=== PATIENT | female | born 1935 | race Caucasian/White ===

== ENCOUNTER 2017-04-01 14:16 | Inpatient (IN) | payer MEDICARE, BC ==
[~2017-04-01] VITALS: Ht 165.1 cm; Wt 89.1 kg
[2017-04-01] VITALS (33 sets, daily range): BP systolic 80–112; BP diastolic 45–89
--- NOTE | ~2017-04-01 | CN ---
PATIENT NAME:WOOD WHITMORE MEDICAL RECORD: [id number] : 39 LOCATION:[id number] ADMIT DATE: 04/01/17 ACCOUNT: [id number] CONSULTING PHYSICIAN: HAIDER SANDOVAL MD REFERRING PHYSICIAN: GEORGINA STYLES MD DATE OF CONSULTATION: 04/02/2017 HISTORY OF PRESENT ILLNESS: This 81-year-old female with no known cardiovascular history, actually had negative angiography approximately [address] Shen in [place], began feeling generalized malaise and fatigue, starting out Sunday, became confused, profoundly hypotensive, presented to her local ER, found to be acidotic as well as elevated cardiac enzymes, was referred here for higher level of care. PAST MEDICAL HISTORY: Includes history of hypertension. ALLERGIES: PHENOBARBITAL, ZYRTEC, and MORPHINE. SOCIAL HISTORY: Nonsmoker and nondrinker. Easily takes care of her ADLs. REVIEW OF SYSTEMS: The patient reports easy bruising but reports no swollen glands. The patient reports no fever, no night sweats, no significant weight gain, no significant weight loss. No significant exercise tolerance. The patient reports no dry eyes, no irritation, no vision change. Patient reports no difficulty hearing and no ear pain. Patient reports no frequent nose bleeds or nose and sinus problems. Patient reports on arm pain on exertion. No shortness of breath while lying down. No history of heart murmur. Patient reports no cough, no wheezing or coughing up blood. Patient reports no abdominal pain, no vomiting. Normal appetite. No diarrhea and not vomiting blood. No nausea and no constipation. Patient reports no incontinence. No difficulty urinating. No hematuria. No increased frequency. Patient reports no muscle aches. No weakness, no arthralgias, no back pain. No swelling of the extremities. Patient reports no abnormal mole, no jaundice, no rashes. Reports no loss of consciousness. No weakness and no numbness. No seizures, dizziness, or headaches. The patient reports no depression, no sleep disturbance, feeling safe in a relationship and no alcohol abuse. Patient reports on fatigue. Reports no runny nose or sinus pressure. No itching, no hives, and no frequent sneezing. PHYSICAL EXAMINATION: GENERAL: Pleasant female in no acute distress, does not appear toxic. VITAL SIGNS: Blood pressure 116/64, pulse 97 and regular. HEENT: Normocephalic, atraumatic. NECK: No JVD or bruit. HEART: Regular. LUNGS: Actually good air excursion. ABDOMEN: Soft, nontender. EXTREMITIES: Pulses 2+. There is no edema. DIAGNOSTIC DATA: ECG shows diffuse T-wave changes consistent with global event. IMPRESSION: Suspect type 2 SC, enzyme leak secondary to hypotension, sepsis, etc. We will check an echocardiographic study. Given negative angiography previously, I would not perform any invasive workup currently. CONSULT REPORT [id number] WOOD WHITMORE TRANSINT:[id number] Voice Confirmation ID: [id number] DOCUMENT ID: [id number] HAIDER SANDOVAL MD at 1337 CC: [id number] DICTATION DATE: 04/02/1751 WATER VESSEL CAPTAIN: 04/02/17 1205 ADM IN [facility] [address] [place] [address]
--- NOTE | ~2017-04-01 | EC ---
PATIENT:WOOD WHITMORE DATE OF SERVICE: 04/01/17 SEX: F MEDICAL RECORD: [id number] DATE OF : 39 LOCATION:[facility] AGE OF PATIENT: 81 ADMISSION DATE: 04/01/17 REFERRING PHYSICIAN: INTERPRETING PHYSICIAN: RACHEL RAPP MD ECHOCARDIOGRAM REPORT ECHO CHARGES 4 ECHO COMPLETE CLINICAL DIAGNOSIS: CHF ECHOCARDIOGRAPHIC MEASUREMENTS (adult normal given) AC root (d.<3.7cm) 2.7 cm LV Septum d (<1.2 cm> 1.0 cm Valve Excursion 1.5 cm LV Septum (systole) 1.2 cm Left Atria (s.<4.0cm> 3.2 cm LVPW d(<1.2cm) 1.0 cm RV (d.<2.3cm) 2.1 cm LVPW (sytole) 1.5 cm LV diastole(<5.6CM) 5.0 cm MV E-F(>70mm/sec) cm LV systole 3.5 cm LVOT Diameter 1.7 cm MV exc.(>10mm) cm Est.ejection fraction (50-75%) % Pericardial Effusion N DOPPLER: LVIT cm/sec A 59.0 cm/sec E 115 cm/sec LA cm/sec RVSP 42.0 mmHg LVOT 69.0 cm/sec AOP1/2T m/s Asc. Ao 145 cm/sec RVOT 58.0 cm/sec RA cm/sec PA 97.0 cm/sec AV Gradient Peak 8.4 mmHg AV Mean 4.3 mmHg AV Area 1.0 cm MV Gradient Peak 5.5 mmHg MV Mean 2.2 mmHg MV Area cm COMMENTS: Equal Opportunity Officer: Carisa VALVERDEOE Accounts Payable Manager: Andrea Jaimes TAPE# PACS DATE OF SERVICE: 04/02/2017 PROCEDURE: Echocardiogram FINDINGS: 1. Left ventricular chamber size is dilated. Left ventricular systolic function is markedly reduced, overall ejection fraction 20% to 25%. There is global hypokinesis throughout all segments with no discrete wall motion abnormalities present. 2. Left atrium, right atrium and right ventricular chamber sizes are within ECHOCARDIOGRAM REPORT [id number] WOOD WHITMORE normal limits. Left atrium measures 3.2 cm. 3. Valvular structures have normal structure and motion. 4. Doppler interrogation reveals mild mitral regurgitation, mild tricuspid regurgitation, no other valvular insufficiency or stenosis. Pulmonary systolic pressure is estimated 42 mmHg. 5. No evidence of pericardial effusion or left ventricular thrombus. TRANSINT:[id number] Voice Confirmation ID: [id number] DOCUMENT ID: [id number] RACHEL RAPP MD at 1323 CC: [id number] DICTATION DATE: 04/04/17 1019 EQUAL OPPORTUNITY REPRESENTATIVE: 04/04/17 1252 ADM IN [facility] [address] [place] [id number]
[2017-04-01 18:06] LABS: HEMATOCRIT 37.6 % (36.0-48.0); HEMOGLOBIN 12.2 g/dL (12-16); MCH 31.4 pg (26.0-34.0); MCHC 32.4 g/dL (31.0-37.0); MCV 96.9 fL (80.0-100.0); MEAN PLATELET VOLUME 12.6 fL (7.4-10.4); PLATELET COUNT 163 10x3/uL (130-400); RBC 3.88 10x6/uL (4.00-5.40); RDW 14.1 % (11.5-14.5); WBC 25.2 10x3/uL (4.8-10.8)
[2017-04-01 18:21] LABS: ANION GAP 17.4 mmol/L (8-16); BILIRUBIN - TOTAL 0.2 mg/dL (0.2-1.3); CALCIUM 8.1 mg/dL (8.5-10.1); CARBON DIOXIDE 20.3 mmol/L (21.0-32.0); CREATININE - SERUM 1.7 mg/dL (0.6-1.3); POTASSIUM - SERUM 3.7 mmol/L (3.5-5.1); PROTEIN - SERUM 6.1 g/dL (6.4-8.2)
[2017-04-01 18:30] LABS: CKMB 4.9 U/L (0.0-3.6); CREATINE KINASE 62 UL (21-215)
[2017-04-01 18:33] LABS: TROPONIN-I 1.743 ng/mL (0.000-0.060)
[2017-04-01 18:36] LABS: BASOPHILS 1 % (0-2); LYMPHOCYTES 15 % (15-50); MONOCYTES 5 % (2-11); NEUTROPHILS 72 % (40-80); PLATELET ESTIMATE NORMAL
[2017-04-01 20:38] LABS: APPEARANCE CLEAR (CLEAR); BILIRUBIN NEGATIVE (NEGATIVE); COLOR YELLOW (YELLOW); GLUCOSE NEGATIVE (NEGATIVE); KETONE NEGATIVE (NEGATIVE); NITRITE NEGATIVE (NEGATIVE); PROTEIN NEGATIVE (NEGATIVE); SPECIFIC GRAVITY 1.015 (1.005-1.020); UROBILINOGEN NORMAL (NORMAL)
[2017-04-01 23:45] LABS: CKMB 5.7 U/L (0.0-3.6); CREATINE KINASE 68 UL (21-215)
[2017-04-02] VITALS (49 sets, daily range): BP systolic 90–134; BP diastolic 44–77; BMI 20.9
[2017-04-02 06:37] LABS: BASOPHILS 0.1 % (0-2); EOSINOPHILS 0 % (0-7); HEMATOCRIT 35.9 % (36.0-48.0); HEMOGLOBIN 11.6 g/dL (12-16); IMMATURE GRANULOCYTES 0.3 % (0-5); LYMPHOCYTES 13.4 % (15-50); MCH 31.2 pg (26.0-34.0); MCHC 32.3 g/dL (31.0-37.0); MCV 96.5 fL (80.0-100.0); MEAN PLATELET VOLUME 12.5 fL (7.4-10.4); NEUTROPHILS 79.2 % (40-80); PLATELET COUNT 138 10x3/uL (130-400); RBC 3.72 10x6/uL (4.00-5.40); RDW 14.2 % (11.5-14.5)
[2017-04-02 07:01] LABS: ALBUMIN 2.7 g/dL (3.4-5.0); ANION GAP 17.8 mmol/L (8-16); BILIRUBIN - TOTAL 0.28 mg/dL (0.2-1.3); CALCIUM 8.2 mg/dL (8.5-10.1); CARBON DIOXIDE 17.8 mmol/L (21.0-32.0); CREATININE - SERUM 1.4 mg/dL (0.6-1.3); POTASSIUM - SERUM 3.6 mmol/L (3.5-5.1); PROTEIN - SERUM 5.5 g/dL (6.4-8.2)
[2017-04-02 07:10] LABS: WBC 16.7 10x3/uL (4.8-10.8)
[2017-04-02 07:33] LABS: CREATINE KINASE 76 UL (21-215); TROPONIN-I 1.968 ng/mL (0.000-0.060)
[2017-04-03] VITALS (24 sets, daily range): BP systolic 106–142; BP diastolic 62–97
[2017-04-03 03:50] LABS: BASOPHILS 0.1 % (0-2); EOSINOPHILS 0 % (0-7); HEMATOCRIT 33.4 % (36.0-48.0); HEMOGLOBIN 10.7 g/dL (12-16); IMMATURE GRANULOCYTES 0.3 % (0-5); LYMPHOCYTES 10.9 % (15-50); MCH 30.9 pg (26.0-34.0); MCV 96.5 fL (80.0-100.0); MEAN PLATELET VOLUME 12.5 fL (7.4-10.4); MONOCYTES 5.6 % (2-11); NEUTROPHILS 83.1 % (40-80); PLATELET COUNT 133 10x3/uL (130-400); RBC 3.46 10x6/uL (4.00-5.40); RDW 14.4 % (11.5-14.5); WBC 14.7 10x3/uL (4.8-10.8)
[2017-04-03 05:54] LABS: ANION GAP 15.9 mmol/L (8-16); CALCIUM 7.9 mg/dL (8.5-10.1); CARBON DIOXIDE 18.6 mmol/L (21.0-32.0); CREATININE - SERUM 1.1 mg/dL (0.6-1.3); POTASSIUM - SERUM 3.5 mmol/L (3.5-5.1)
[2017-04-03 06:00] LABS: TROPONIN-I 1.41 ng/mL (0.000-0.060)
[2017-04-03 07:23] LABS: MAGNESIUM - SERUM 1.6 mg/dL (1.8-2.4); PHOSPHOROUS 2.6 mg/dL (2.5-4.9)
[2017-04-03 21:41] LABS: MAGNESIUM - SERUM 1.2 mg/dL (1.8-2.4)
[2017-04-03 21:45] LABS: POTASSIUM - SERUM 2.5 mmol/L (3.5-5.1)
[2017-04-04] VITALS (25 sets, daily range): BP systolic 92–132; BP diastolic 48–72
[2017-04-04 04:05] LABS: BASOPHILS 0 % (0-2); EOSINOPHILS 0 % (0-7); HEMATOCRIT 30.2 % (36.0-48.0); IMMATURE GRANULOCYTES 0.4 % (0-5); LYMPHOCYTES 11.9 % (15-50); MCH 30.6 pg (26.0-34.0); MCHC 33.1 g/dL (31.0-37.0); MEAN PLATELET VOLUME 9.9 fL (7.4-10.4); MONOCYTES 5.4 % (2-11); NEUTROPHILS 82.3 % (40-80); RBC 3.27 10x6/uL (4.00-5.40); RDW 12.7 % (11.5-14.5)
[2017-04-04 04:10] LABS: MCV 92.4 fL (80.0-100.0); PLATELET COUNT 229 10x3/uL (130-400); WBC 5.4 10x3/uL (4.8-10.8)
[2017-04-04 04:23] LABS: CALCIUM 8.3 mg/dL (8.5-10.1); CREATININE - SERUM 0.9 mg/dL (0.6-1.3)
[2017-04-04 04:25] LABS: ANION GAP 11.7 mmol/L (8-16); CARBON DIOXIDE 27.2 mmol/L (21.0-32.0); POTASSIUM - SERUM 3.9 mmol/L (3.5-5.1)
[2017-04-05] VITALS (42 sets, daily range): BP systolic 71–132; BP diastolic 41–76
[2017-04-05 06:03] LABS: CALCIUM 8.4 mg/dL (8.5-10.1)
[2017-04-05 06:05] LABS: ANION GAP 19.4 mmol/L (8-16); CARBON DIOXIDE 16.9 mmol/L (21.0-32.0); CREATININE - SERUM 1.7 mg/dL (0.6-1.3); POTASSIUM - SERUM 5.3 mmol/L (3.5-5.1); TROPONIN-I 0.156 ng/mL (0.000-0.060)
[2017-04-05 06:41] LABS: HEMATOCRIT 37.2 % (36.0-48.0); HEMOGLOBIN 11.7 g/dL (12-16); MCH 30.3 pg (26.0-34.0); MCHC 31.5 g/dL (31.0-37.0); MCV 96.4 fL (80.0-100.0); MEAN PLATELET VOLUME 12.7 fL (7.4-10.4); PLATELET COUNT 171 10x3/uL (130-400); RBC 3.86 10x6/uL (4.00-5.40); RDW 14.2 % (11.5-14.5); WBC 21.6 10x3/uL (4.8-10.8)
[2017-04-05 08:20] LABS: LYMPHOCYTES 10 % (15-50); MONOCYTES 8 % (2-11); NEUTROPHILS 77 % (40-80); PLATELET ESTIMATE NORMAL; ROULEAUX OCC
[2017-04-06] VITALS (73 sets, daily range): BP systolic 86–114; BP diastolic 40–77
[2017-04-06 04:00] LABS: BASOPHILS 0.1 % (0-2); EOSINOPHILS 0 % (0-7); HEMATOCRIT 30.2 % (36.0-48.0); HEMOGLOBIN 9.7 g/dL (12-16); IMMATURE GRANULOCYTES 3.4 % (0-5); LYMPHOCYTES 11.4 % (15-50); MCHC 32.1 g/dL (31.0-37.0); MEAN PLATELET VOLUME 12.1 fL (7.4-10.4); MONOCYTES 9.9 % (2-11); NEUTROPHILS 75.2 % (40-80); RBC 3.23 10x6/uL (4.00-5.40); RDW 14.1 % (11.5-14.5)
[2017-04-06 04:04] LABS: MCV 93.5 fL (80.0-100.0); PLATELET COUNT 132 10x3/uL (130-400); WBC 13.7 10x3/uL (4.8-10.8)
[2017-04-06 04:07] LABS: KETONE - SERUM SMALL mg/dL (NEGATIVE)
[2017-04-06 04:25] LABS: ALBUMIN 2.1 g/dL (3.4-5.0); ALKALINE PHOSPHATASE 53 U/L (46-116); ALT (SGPT) 428 U/L (10-68); CALCIUM 7.6 mg/dL (8.5-10.1); CHLORIDE - SERUM 106 mmol/L (98-107); CREATINE KINASE 28 UL (21-215); GLUCOSE 101 mg/dL (74-106); MAGNESIUM - SERUM 2.4 mg/dL (1.8-2.4); PROTEIN - SERUM 4.8 g/dL (6.4-8.2); SODIUM 137 mmol/L (136-145)
[2017-04-06 04:36] LABS: CALC OSMOLALITY 280 mosm/kg (275-300); CREATININE - SERUM 2.4 mg/dL (0.6-1.3); UREA NITROGEN 32 mg/dL (7-18); eGFR NON AFRICAN AMERICAN 21 mL/min (90-120)
[2017-04-07] VITALS (97 sets, daily range): BP systolic 93–130; BP diastolic 38–63
[2017-04-07 03:31] LABS: BASOPHILS 0.1 % (0-2); EOSINOPHILS 0.3 % (0-7); HEMATOCRIT 27.6 % (36.0-48.0); HEMOGLOBIN 9.2 g/dL (12-16); IMMATURE GRANULOCYTES 2.3 % (0-5); LYMPHOCYTES 15.6 % (15-50); MCH 30.2 pg (26.0-34.0); MCHC 33.3 g/dL (31.0-37.0); MEAN PLATELET VOLUME 11.8 fL (7.4-10.4); MONOCYTES 8.3 % (2-11); NEUTROPHILS 73.4 % (40-80); PLATELET COUNT 117 10x3/uL (130-400); RBC 3.05 10x6/uL (4.00-5.40); RDW 14.3 % (11.5-14.5); WBC 11.5 10x3/uL (4.8-10.8)
[2017-04-07 03:37] LABS: MCV 90.5 fL (80.0-100.0)
[2017-04-07 03:44] LABS: ALBUMIN 1.9 g/dL (3.4-5.0); BILIRUBIN - TOTAL 0.41 mg/dL (0.2-1.3); CALCIUM 7.4 mg/dL (8.5-10.1); CARBON DIOXIDE 16.5 mmol/L (21.0-32.0); PROTEIN - SERUM 4.5 g/dL (6.4-8.2)
[2017-04-07 03:45] LABS: ANION GAP 19.8 mmol/L (8-16); POTASSIUM - SERUM 3.3 mmol/L (3.5-5.1)
[2017-04-08] VITALS (55 sets, daily range): BP systolic 91–158; BP diastolic 38–378; Ht 165.1 cm; Wt 89.1 kg
[2017-04-08 04:28] LABS: BASOPHILS 0.1 % (0-2); EOSINOPHILS 0.7 % (0-7); HEMOGLOBIN 9.8 g/dL (12-16); IMMATURE GRANULOCYTES 2.6 % (0-5); LYMPHOCYTES 14.3 % (15-50); MCH 30.8 pg (26.0-34.0); MEAN PLATELET VOLUME 11.9 fL (7.4-10.4); MONOCYTES 9.5 % (2-11); NEUTROPHILS 72.8 % (40-80); PLATELET COUNT 114 10x3/uL (130-400); RBC 3.18 10x6/uL (4.00-5.40); RDW 14.2 % (11.5-14.5); WBC 14.1 10x3/uL (4.8-10.8)
[2017-04-08 04:29] LABS: MCV 88.1 fL (80.0-100.0)
[2017-04-08 04:43] LABS: ALBUMIN 1.8 g/dL (3.4-5.0); BILIRUBIN - TOTAL 0.51 mg/dL (0.2-1.3); CALCIUM 7.5 mg/dL (8.5-10.1); CARBON DIOXIDE 18.5 mmol/L (21.0-32.0); CREATININE - SERUM 3.3 mg/dL (0.6-1.3); PROTEIN - SERUM 4.2 g/dL (6.4-8.2); VANCOMYCIN - RANDOM 45.5 ug/mL (10.0-20.0)
[2017-04-08 04:45] LABS: ANION GAP 21.9 mmol/L (8-16); POTASSIUM - SERUM 4.4 mmol/L (3.5-5.1)
[2017-04-09] VITALS (24 sets, daily range): BP systolic 96–125; BP diastolic 42–72
[2017-04-09 03:53] LABS: BASOPHILS 0.1 % (0-2); EOSINOPHILS 0.5 % (0-7); HEMATOCRIT 28.2 % (36.0-48.0); HEMOGLOBIN 9.6 g/dL (12-16); IMMATURE GRANULOCYTES 1.8 % (0-5); LYMPHOCYTES 12.6 % (15-50); MCH 30.4 pg (26.0-34.0); MCV 89.2 fL (80.0-100.0); MEAN PLATELET VOLUME 12.4 fL (7.4-10.4); MONOCYTES 7.5 % (2-11); NEUTROPHILS 77.5 % (40-80); PLATELET COUNT 121 10x3/uL (130-400); RBC 3.16 10x6/uL (4.00-5.40); RDW 14.7 % (11.5-14.5); WBC 13.1 10x3/uL (4.8-10.8)
[2017-04-09 04:11] LABS: ANION GAP 21.9 mmol/L (8-16); CALCIUM 8.2 mg/dL (8.5-10.1); CREATININE - SERUM 3.7 mg/dL (0.6-1.3); POTASSIUM - SERUM 4.9 mmol/L (3.5-5.1)
[2017-04-10] VITALS (24 sets, daily range): BP systolic 104–157; BP diastolic 43–78
[2017-04-10 04:05] LABS: BASOPHILS 0.1 % (0-2); EOSINOPHILS 0.4 % (0-7); HEMATOCRIT 27.8 % (36.0-48.0); HEMOGLOBIN 9.4 g/dL (12-16); IMMATURE GRANULOCYTES 2.4 % (0-5); LYMPHOCYTES 11.2 % (15-50); MCH 30.1 pg (26.0-34.0); MCHC 33.8 g/dL (31.0-37.0); MCV 89.1 fL (80.0-100.0); MEAN PLATELET VOLUME 11.5 fL (7.4-10.4); MONOCYTES 7.5 % (2-11); NEUTROPHILS 78.4 % (40-80); PLATELET COUNT 109 10x3/uL (130-400); RBC 3.12 10x6/uL (4.00-5.40); WBC 13.8 10x3/uL (4.8-10.8)
[2017-04-10 04:15] LABS: ANION GAP 23.1 mmol/L (8-16); CALCIUM 8.1 mg/dL (8.5-10.1); CREATININE - SERUM 4.3 mg/dL (0.6-1.3); MAGNESIUM - SERUM 2.6 mg/dL (1.8-2.4); PHOSPHOROUS 6.7 mg/dL (2.5-4.9); POTASSIUM - SERUM 5.1 mmol/L (3.5-5.1); VANCOMYCIN - RANDOM 43.9 ug/mL (10.0-20.0)
[2017-04-10 18:38] LABS: CKMB 0.7 U/L (0.0-3.6); CREATINE KINASE 33 UL (21-215); TROPONIN-I 0.031 ng/mL (0.000-0.060)
[2017-04-11] VITALS (24 sets, daily range): BP systolic 118–147; BP diastolic 47–80
[2017-04-11 05:05] LABS: ANION GAP 21.5 mmol/L (8-16); CALCIUM 8.1 mg/dL (8.5-10.1); CREATININE - SERUM 4.2 mg/dL (0.6-1.3); POTASSIUM - SERUM 4.5 mmol/L (3.5-5.1)
[2017-04-11 05:13] LABS: HEMATOCRIT 30.4 % (36.0-48.0); HEMOGLOBIN 10.1 g/dL (12-16)
[2017-04-11 14:16] LABS: AFB SPECIMEN PROCESSING Concentration (())
[2017-04-11 15:19] LABS: FUNGUS STAIN Final report (())
[2017-04-12] VITALS (25 sets, daily range): BP systolic 101–150; BP diastolic 49–73
[2017-04-12 04:18] LABS: HEMATOCRIT 27.1 % (36.0-48.0); HEMOGLOBIN 9.1 g/dL (12-16)
[2017-04-12 04:41] LABS: ANION GAP 22.4 mmol/L (8-16); CALCIUM 8.4 mg/dL (8.5-10.1); CARBON DIOXIDE 23.4 mmol/L (21.0-32.0); CREATININE - SERUM 4.4 mg/dL (0.6-1.3); VANCOMYCIN - RANDOM 38.7 ug/mL (10.0-20.0)
[2017-04-12 04:42] LABS: POTASSIUM - SERUM 3.8 mmol/L (3.5-5.1)
[2017-04-13] VITALS (24 sets, daily range): BP systolic 102–127; BP diastolic 49–75
[2017-04-13 03:54] LABS: BASOPHILS 0 % (0-2); EOSINOPHILS 0.1 % (0-7); HEMATOCRIT 26.5 % (36.0-48.0); HEMOGLOBIN 8.8 g/dL (12-16); IMMATURE GRANULOCYTES 0.9 % (0-5); LYMPHOCYTES 7.5 % (15-50); MCH 30.4 pg (26.0-34.0); MCHC 33.2 g/dL (31.0-37.0); MCV 91.7 fL (80.0-100.0); MEAN PLATELET VOLUME 11.9 fL (7.4-10.4); MONOCYTES 6.8 % (2-11); NEUTROPHILS 84.7 % (40-80); PLATELET COUNT 104 10x3/uL (130-400); RBC 2.89 10x6/uL (4.00-5.40); RDW 15.6 % (11.5-14.5); WBC 9.5 10x3/uL (4.8-10.8)
[2017-04-13 04:18] LABS: ANION GAP 20.8 mmol/L (8-16); CALCIUM 8.1 mg/dL (8.5-10.1); CARBON DIOXIDE 25.7 mmol/L (21.0-32.0); CREATININE - SERUM 4.4 mg/dL (0.6-1.3); POTASSIUM - SERUM 3.5 mmol/L (3.5-5.1)
[2017-04-13 04:36] LABS: APTT 40.9 SECONDS (22.8-39.4); INR 1.28 (0.85-1.17); PROTIME 15.5 SECONDS (11.6-15.0)
[2017-04-13 04:37] LABS: D-DIMER-QUANTITATIVE 1.35 ug/mLFEU (0.20-0.54)
[2017-04-13] MEDS ORDERED: SYNTHROID112 MCG PO (10:39)
[2017-04-13] MEDS ORDERED: ALDACTONE25 MG PO (10:40)
[2017-04-13] MEDS ORDERED: METOPROLOL TART25 MG PO (10:40)
[2017-04-13] MEDS ORDERED: REMERON15 MG PO (10:40)
[2017-04-13] MEDS ORDERED: FUROSEMIDE20 MG PO (10:40)
[2017-04-13] MEDS ORDERED: FLUTICASONE PRO16 GM NASAL (10:41)
[2017-04-13] MEDS ORDERED: ZANTAC150 MG PO (10:41)
[2017-04-13] MEDS ORDERED: ZOCOR10 MG PO (10:44)
[2017-04-13] MEDS ORDERED: BUSPAR10 MG PO (10:44)
[2017-04-13] MEDS ORDERED: KLOR-CON 1010 MEQ PO (10:44)
[2017-04-13] MEDS ORDERED: LISINOPRIL10 MG PO (10:45)
[2017-04-13 19:45] LABS: BASOPHILS 0.1 % (0-2); EOSINOPHILS 0 % (0-7); HEMATOCRIT 28.2 % (36.0-48.0); HEMOGLOBIN 9.3 g/dL (12-16); IMMATURE GRANULOCYTES 1.7 % (0-5); LYMPHOCYTES 8.3 % (15-50); MCH 30.3 pg (26.0-34.0); MCV 91.9 fL (80.0-100.0); MEAN PLATELET VOLUME 11.4 fL (7.4-10.4); MONOCYTES 4.9 % (2-11); RBC 3.07 10x6/uL (4.00-5.40); RDW 15.3 % (11.5-14.5)
[2017-04-13 19:59] LABS: ALBUMIN 3.3 g/dL (3.4-5.0); ANION GAP 18.2 mmol/L (8-16); BILIRUBIN - TOTAL 0.52 mg/dL (0.2-1.3); CALCIUM 8.5 mg/dL (8.5-10.1); CARBON DIOXIDE 27.7 mmol/L (21.0-32.0); CREATININE - SERUM 4.7 mg/dL (0.6-1.3); PROTEIN - SERUM 5.8 g/dL (6.4-8.2)
[2017-04-13 20:06] LABS: MAGNESIUM - SERUM 2.7 mg/dL (1.8-2.4); PHOSPHOROUS 9.5 mg/dL (2.5-4.9)
[2017-04-13 20:09] LABS: POTASSIUM - SERUM 2.9 mmol/L (3.5-5.1)
[2017-04-13 20:15] LABS: PLATELET COUNT 132 10x3/uL (130-400); WBC 17.3 10x3/uL (4.8-10.8)
[2017-04-14] VITALS (34 sets, daily range): BP systolic 94–123; BP diastolic 41–80
[2017-04-14 05:49] LABS: BASOPHILS 0 % (0-2); EOSINOPHILS 0.3 % (0-7); HEMATOCRIT 24.1 % (36.0-48.0); HEMOGLOBIN 8.2 g/dL (12-16); IMMATURE GRANULOCYTES 0.6 % (0-5); LYMPHOCYTES 4.1 % (15-50); MCH 30.4 pg (26.0-34.0); MEAN PLATELET VOLUME 11.6 fL (7.4-10.4); MONOCYTES 5.6 % (2-11); NEUTROPHILS 89.4 % (40-80); PLATELET COUNT 125 10x3/uL (130-400); RDW 14.9 % (11.5-14.5); WBC 17.5 10x3/uL (4.8-10.8)
[2017-04-14 06:01] LABS: MCV 89.3 fL (80.0-100.0)
[2017-04-14 06:24] LABS: ANION GAP 21.1 mmol/L (8-16); CALCIUM 8.4 mg/dL (8.5-10.1); CARBON DIOXIDE 22.5 mmol/L (21.0-32.0); CREATININE - SERUM 4.7 mg/dL (0.6-1.3); VANCOMYCIN - RANDOM 36.3 ug/mL (10.0-20.0)
[2017-04-14 06:26] LABS: POTASSIUM - SERUM 3.6 mmol/L (3.5-5.1)
[2017-04-15] VITALS (24 sets, daily range): BP systolic 96–120; BP diastolic 44–82
[2017-04-15 04:34] LABS: BASOPHILS 0 % (0-2); EOSINOPHILS 0.9 % (0-7); HEMATOCRIT 24.2 % (36.0-48.0); HEMOGLOBIN 8.3 g/dL (12-16); IMMATURE GRANULOCYTES 0.5 % (0-5); LYMPHOCYTES 10.4 % (15-50); MCH 30.3 pg (26.0-34.0); MCHC 34.3 g/dL (31.0-37.0); MCV 88.3 fL (80.0-100.0); MEAN PLATELET VOLUME 11.2 fL (7.4-10.4); MONOCYTES 6.6 % (2-11); NEUTROPHILS 81.6 % (40-80); PLATELET COUNT 127 10x3/uL (130-400); RBC 2.74 10x6/uL (4.00-5.40); RDW 14.6 % (11.5-14.5)
[2017-04-15 04:39] LABS: WBC 13.1 10x3/uL (4.8-10.8)
[2017-04-15 04:57] LABS: ALBUMIN 2.5 g/dL (3.4-5.0); BILIRUBIN - TOTAL 0.58 mg/dL (0.2-1.3); CARBON DIOXIDE 22.7 mmol/L (21.0-32.0); CREATININE - SERUM 4.9 mg/dL (0.6-1.3); MAGNESIUM - SERUM 2.3 mg/dL (1.8-2.4); PHOSPHOROUS 7.2 mg/dL (2.5-4.9); PROTEIN - SERUM 4.9 g/dL (6.4-8.2)
[2017-04-15 05:03] LABS: ANION GAP 19.3 mmol/L (8-16)
[2017-04-16] VITALS (24 sets, daily range): BP systolic 87–126; BP diastolic 40–66
[2017-04-16 03:58] LABS: BASOPHILS 0 % (0-2); EOSINOPHILS 1.4 % (0-7); HEMATOCRIT 23.9 % (36.0-48.0); HEMOGLOBIN 8.2 g/dL (12-16); IMMATURE GRANULOCYTES 0.5 % (0-5); LYMPHOCYTES 8.5 % (15-50); MCH 30.1 pg (26.0-34.0); MCHC 34.3 g/dL (31.0-37.0); MCV 87.9 fL (80.0-100.0); MEAN PLATELET VOLUME 11.6 fL (7.4-10.4); NEUTROPHILS 82.6 % (40-80); PLATELET COUNT 122 10x3/uL (130-400); RBC 2.72 10x6/uL (4.00-5.40); RDW 14.8 % (11.5-14.5); WBC 10.9 10x3/uL (4.8-10.8)
[2017-04-16 04:08] LABS: INR 1.2 (0.85-1.17); PROTIME 14.5 SECONDS (11.6-15.0)
[2017-04-16 04:10] LABS: APTT 44.8 SECONDS (22.8-39.4)
[2017-04-16 04:14] LABS: ALBUMIN 2.4 g/dL (3.4-5.0); ANION GAP 21.9 mmol/L (8-16); BILIRUBIN - TOTAL 0.6 mg/dL (0.2-1.3); CALCIUM 7.7 mg/dL (8.5-10.1); CARBON DIOXIDE 21.4 mmol/L (21.0-32.0); CREATININE - SERUM 4.7 mg/dL (0.6-1.3); PHOSPHOROUS 7.3 mg/dL (2.5-4.9); PROTEIN - SERUM 4.8 g/dL (6.4-8.2)
[2017-04-16 04:23] LABS: POTASSIUM - SERUM 3.3 mmol/L (3.5-5.1)
[2017-04-17] VITALS (24 sets, daily range): BP systolic 85–123; BP diastolic 41–61
[2017-04-17 04:55] LABS: BASOPHILS 0 % (0-2); EOSINOPHILS 1.8 % (0-7); HEMATOCRIT 24.2 % (36.0-48.0); HEMOGLOBIN 8.1 g/dL (12-16); IMMATURE GRANULOCYTES 0.6 % (0-5); LYMPHOCYTES 10.6 % (15-50); MCH 29.9 pg (26.0-34.0); MCHC 33.5 g/dL (31.0-37.0); MCV 89.3 fL (80.0-100.0); MEAN PLATELET VOLUME 12.2 fL (7.4-10.4); MONOCYTES 5.5 % (2-11); NEUTROPHILS 81.5 % (40-80); PLATELET COUNT 122 10x3/uL (130-400); RBC 2.71 10x6/uL (4.00-5.40); RDW 14.8 % (11.5-14.5)
[2017-04-17 05:16] LABS: ALBUMIN 2.2 g/dL (3.4-5.0); ANION GAP 18.4 mmol/L (8-16); BILIRUBIN - TOTAL 0.5 mg/dL (0.2-1.3); CALCIUM 7.5 mg/dL (8.5-10.1); CARBON DIOXIDE 23.1 mmol/L (21.0-32.0); CREATININE - SERUM 4.6 mg/dL (0.6-1.3); POTASSIUM - SERUM 3.5 mmol/L (3.5-5.1); PROTEIN - SERUM 4.6 g/dL (6.4-8.2)
[2017-04-18] VITALS (23 sets, daily range): BP systolic 108–119; BP diastolic 47–63
[2017-04-18 05:42] LABS: BASOPHILS 0.1 % (0-2); EOSINOPHILS 0.2 % (0-7); HEMATOCRIT 27.5 % (36.0-48.0); HEMOGLOBIN 9.7 g/dL (12-16); IMMATURE GRANULOCYTES 0.6 % (0-5); LYMPHOCYTES 4.5 % (15-50); MCH 31.1 pg (26.0-34.0); MCHC 35.3 g/dL (31.0-37.0); MCV 88.1 fL (80.0-100.0); MEAN PLATELET VOLUME 12.4 fL (7.4-10.4); MONOCYTES 5.3 % (2-11); NEUTROPHILS 89.3 % (40-80); PLATELET COUNT 129 10x3/uL (130-400); RBC 3.12 10x6/uL (4.00-5.40); RDW 14.8 % (11.5-14.5); WBC 10.9 10x3/uL (4.8-10.8)
[2017-04-18 05:58] LABS: ALBUMIN 2.2 g/dL (3.4-5.0); ANION GAP 20.1 mmol/L (8-16); CALCIUM 6.9 mg/dL (8.5-10.1); CREATININE - SERUM 4.4 mg/dL (0.6-1.3); POTASSIUM - SERUM 3.1 mmol/L (3.5-5.1); PROTEIN - SERUM 4.8 g/dL (6.4-8.2)
[2017-04-18 12:35] LABS: CARBON DIOXIDE 21.8 mmol/L (21.0-32.0); CREATININE - SERUM 4.4 mg/dL (0.6-1.3)
[2017-04-18 12:36] LABS: ANION GAP 18.8 mmol/L (8-16); CALCIUM 6.8 mg/dL (8.5-10.1); POTASSIUM - SERUM 3.6 mmol/L (3.5-5.1)
[2017-04-18 15:30] LABS: APTT 26.2 SECONDS (22.8-39.4); INR 1.09 (0.85-1.17); PROTIME 13.7 SECONDS (11.6-15.0)
[2017-04-18 19:44] LABS: PROTEIN - BODY FLUID 1.9 G/DL
[2017-04-18 21:37] LABS: MACROPHAGES BF 35 %; MESOTHELIALS BF 9 %; NEUT - BF 39 %
[2017-04-19] VITALS (24 sets, daily range): BP systolic 104–114; BP diastolic 47–61
[2017-04-19 05:16] LABS: BASOPHILS 0 % (0-2); EOSINOPHILS 0.9 % (0-7); HEMATOCRIT 27.2 % (36.0-48.0); HEMOGLOBIN 9.3 g/dL (12-16); IMMATURE GRANULOCYTES 0.8 % (0-5); LYMPHOCYTES 5.9 % (15-50); MCH 30.5 pg (26.0-34.0); MCHC 34.2 g/dL (31.0-37.0); MCV 89.2 fL (80.0-100.0); MONOCYTES 5.7 % (2-11); NEUTROPHILS 86.7 % (40-80); PLATELET COUNT 132 10x3/uL (130-400); RBC 3.05 10x6/uL (4.00-5.40); WBC 10.3 10x3/uL (4.8-10.8)
[2017-04-19 05:37] LABS: ALBUMIN 2.2 g/dL (3.4-5.0); ANION GAP 20.9 mmol/L (8-16); BILIRUBIN - TOTAL 0.75 mg/dL (0.2-1.3); CALCIUM 7.2 mg/dL (8.5-10.1); CARBON DIOXIDE 20.7 mmol/L (21.0-32.0); CREATININE - SERUM 4.5 mg/dL (0.6-1.3); MAGNESIUM - SERUM 2.1 mg/dL (1.8-2.4); PHOSPHOROUS 7.7 mg/dL (2.5-4.9); POTASSIUM - SERUM 3.6 mmol/L (3.5-5.1); PROTEIN - SERUM 4.9 g/dL (6.4-8.2)
[2017-04-20] VITALS (24 sets, daily range): BP systolic 101–122; BP diastolic 42–68
[2017-04-20 04:20] LABS: BASOPHILS 0 % (0-2); EOSINOPHILS 0.7 % (0-7); HEMOGLOBIN 9.4 g/dL (12-16); IMMATURE GRANULOCYTES 0.7 % (0-5); LYMPHOCYTES 5.7 % (15-50); MCHC 33.6 g/dL (31.0-37.0); MCV 89.5 fL (80.0-100.0); MONOCYTES 5.8 % (2-11); NEUTROPHILS 87.1 % (40-80); PLATELET COUNT 140 10x3/uL (130-400); RBC 3.13 10x6/uL (4.00-5.40); RDW 15.1 % (11.5-14.5); WBC 11.3 10x3/uL (4.8-10.8)
[2017-04-20 04:44] LABS: ALBUMIN 2.2 g/dL (3.4-5.0); ANION GAP 18.6 mmol/L (8-16); BILIRUBIN - TOTAL 0.64 mg/dL (0.2-1.3); CALCIUM 7.5 mg/dL (8.5-10.1); CARBON DIOXIDE 22.8 mmol/L (21.0-32.0); CREATININE - SERUM 4.4 mg/dL (0.6-1.3); POTASSIUM - SERUM 3.4 mmol/L (3.5-5.1); PROTEIN - SERUM 5.1 g/dL (6.4-8.2)
[2017-04-21] VITALS (14 sets, daily range): BP systolic 94–119; BP diastolic 50–67
[2017-04-21 04:50] LABS: BASOPHILS 0 % (0-2); EOSINOPHILS 0.7 % (0-7); HEMATOCRIT 27.5 % (36.0-48.0); HEMOGLOBIN 9.5 g/dL (12-16); IMMATURE GRANULOCYTES 0.8 % (0-5); LYMPHOCYTES 4.4 % (15-50); MCH 30.8 pg (26.0-34.0); MCHC 34.5 g/dL (31.0-37.0); MCV 89.3 fL (80.0-100.0); MEAN PLATELET VOLUME 11.5 fL (7.4-10.4); MONOCYTES 7.6 % (2-11); NEUTROPHILS 86.5 % (40-80); PLATELET COUNT 129 10x3/uL (130-400); RBC 3.08 10x6/uL (4.00-5.40); RDW 15.1 % (11.5-14.5)
[2017-04-21 05:16] LABS: ALBUMIN 2.1 g/dL (3.4-5.0); BILIRUBIN - TOTAL 0.62 mg/dL (0.2-1.3); CALCIUM 7.7 mg/dL (8.5-10.1); CARBON DIOXIDE 22.3 mmol/L (21.0-32.0); CREATININE - SERUM 4.1 mg/dL (0.6-1.3); POTASSIUM - SERUM 3.3 mmol/L (3.5-5.1); PROTEIN - SERUM 5.1 g/dL (6.4-8.2)
[2017-04-27 11:19] LABS: ACID FAST CULTURE Positive (())
[2017-04-30 15:20] LABS: ACID FAST SMEAR Negative (()); M TUBERCULOSIS Negative (())
[2017-05-08 06:13] LABS: FUNGUS MYCOLOGY CULTURE Final report (())
== END 2017-04-21 15:11 | disposition hospice, inpatient (51) | DRG 870 ==
LOC: D.ICU 14:16
PROVIDERS: Emergency Medicine; Family Medicine; General Practice; Internal Medicine Cardiovascular Disease; Internal Medicine Nephrology; Internal Medicine Pulmonary Disease
PROC: 02HV33Z Insertion of Infusion Device into Superior Vena Cava, Percutaneous Approach (ICD-10-PCS; principal; 2017-04-05)
PROC: B548ZZA Ultrasonography of Superior Vena Cava, Guidance (ICD-10-PCS; 2017-04-05)
PROC: 5A1955Z Respiratory Ventilation, Greater than 96 Consecutive Hours (ICD-10-PCS; 2017-04-05)
PROC: 0BH17EZ Insertion of Endotracheal Airway into Trachea, Via Natural or Artificial Opening (ICD-10-PCS; 2017-04-05)
PROC: 0T9B70Z Drainage of Bladder with Drainage Device, Via Natural or Artificial Opening (ICD-10-PCS; 2017-04-05)
PROC: 0BDB8ZX Extraction of Left Lower Lobe Bronchus, Via Natural or Artificial Opening Endoscopic, Diagnostic (ICD-10-PCS; 2017-04-10)
PROC: 0BD48ZX Extraction of Right Upper Lobe Bronchus, Via Natural or Artificial Opening Endoscopic, Diagnostic (ICD-10-PCS; 2017-04-10)
PROC: 0BD88ZX Extraction of Left Upper Lobe Bronchus, Via Natural or Artificial Opening Endoscopic, Diagnostic (ICD-10-PCS; 2017-04-10)
PROC: 0BD38ZX Extraction of Right Main Bronchus, Via Natural or Artificial Opening Endoscopic, Diagnostic (ICD-10-PCS; 2017-04-10)
PROC: 0BD78ZX Extraction of Left Main Bronchus, Via Natural or Artificial Opening Endoscopic, Diagnostic (ICD-10-PCS; 2017-04-10)
PROC: 0BD68ZX Extraction of Right Lower Lobe Bronchus, Via Natural or Artificial Opening Endoscopic, Diagnostic (ICD-10-PCS; 2017-04-10)
PROC: 5A09457 Assistance with Respiratory Ventilation, 24-96 Consecutive Hours, Continuous Positive Airway Pressure (ICD-10-PCS; 2017-04-11)
PROC: 5A12012 Performance of Cardiac Output, Single, Manual (ICD-10-PCS; 2017-04-13)
PROC: 0BH17EZ Insertion of Endotracheal Airway into Trachea, Via Natural or Artificial Opening (ICD-10-PCS; 2017-04-13)
PROC: 5A1955Z Respiratory Ventilation, Greater than 96 Consecutive Hours (ICD-10-PCS; 2017-04-13)
PROC: 0W9930Z Drainage of Right Pleural Cavity with Drainage Device, Percutaneous Approach (ICD-10-PCS; 2017-04-18)
DX: A41.1 Sepsis due to other specified staphylococcus (principal); R65.21 Severe sepsis with septic shock; I21.A1 Myocardial infarction type 2; J15.6 Pneumonia due to other Gram-negative bacteria; J15.212 Pneumonia due to Methicillin resistant Staphylococcus aureus; I50.23 Acute on chronic systolic (congestive) heart failure; J69.0 Pneumonitis due to inhalation of food and vomit; N17.9 Acute kidney failure, unspecified; J44.1 Chronic obstructive pulmonary disease with (acute) exacerbation; E87.1 Hypo-osmolality and hyponatremia; J44.0 Chronic obstructive pulmonary disease with (acute) lower respiratory infection; I13.0 Hypertensive heart and chronic kidney disease with heart failure and stage 1 through stage 4 chronic kidney disease, or unspecified chronic kidney disease; E11.9 Type 2 diabetes mellitus without complications; E03.9 Hypothyroidism, unspecified; Z66 Do not resuscitate; N18.9 Chronic kidney disease, unspecified; K29.70 Gastritis, unspecified, without bleeding; E87.6 Hypokalemia; D69.6 Thrombocytopenia, unspecified; Z78.1 Physical restraint status

== ENCOUNTER 2017-04-21 14:34 | Inpatient (IN) | payer OTHER ==
[~2017-04-21] VITALS: Ht 165.1 cm; Wt 88.2 kg
[2017-04-21] VITALS (7 sets, daily range): BP systolic 72–94; BP diastolic 32–53; Ht 165.1 cm; Wt 88.2 kg
[~2017-04-21 14:34] MED LIST: ALDACTONE25 MG PO; BUSPAR10 MG PO; FLUTICASONE PRO16 GM NASAL; FUROSEMIDE20 MG PO; KLOR-CON 1010 MEQ PO; LISINOPRIL10 MG PO; METOPROLOL TART25 MG PO; REMERON15 MG PO; SYNTHROID112 MCG PO; ZANTAC150 MG PO; ZOCOR10 MG PO
[2017-04-22 00:16] VITALS: BP 66/32
== END 2017-04-22 09:28 | DRG 951 ==
LOC: D.ICU 14:34 → D.MS 18:08
DX: Z51.5 Encounter for palliative care (principal)